=== PATIENT | male | born 1955 | race Caucasian/White ===

== ENCOUNTER → 2016-12-10 | Outpatient (CLI) | payer OTHER ==
[~2016-12-10] MED LIST: DXY100 PO; IBUP200T52 PO; LDDP5 TD; LORA-741 PO; MULT-506 PO; OXYC5TAB PO; SIMV20TA2 PO
[2016-12-10 09:35] LABS: COMPLETE YES; EOS % 3.5 %; HEMATOCRIT 46.8 % (42-52); IG% 0.1 %; LYMPH % 21.7 %; LYMPH ABS # 1.51 K/uL (1.2-3.4); MEAN CELL VOLUME 87.8 fL (80-100); MEAN CORPUSCULAR HEMOGLOBIN 30.8 pg (25-34); MEAN PLATELET VOLUME 10.5 fL (7.4-10.4); MONO % 6.2 %; NEUT % 68.5 %; PLATELET COUNT 254 K/uL (130-400); RED BLOOD COUNT 5.33 M/uL (4.7-6.1); URINE APPEARANCE CLEAR (CLEAR); URINE BILIRUBIN NEG (NEG); URINE COLOR YELLOW; URINE EPITHELIAL CELL AUTO 0-5 /lpf (0-5); URINE NITRITE NEG (NEG); URINE PH 5.5 (4.5-7.5); URINE SPECIFIC GRAVITY 1.021 (1.000-1.030); UROBILINOGEN NEG (NEG); WHITE BLOOD COUNT 6.95 K/uL (4.8-10.8)
[2016-12-10 09:37] LABS: MANUAL MICROSCOPIC REQUIRED? NO; REVIEW REQ? NO
[2016-12-10 09:47] LABS: ALT/SGPT 44 U/L (12-78); AST/SGOT 21 U/L (15-37); BLOOD UREA NITROGEN 16 mg/dl (7-18); BUN/CREATININE RATIO 16.3 (10-20); CARBON DIOXIDE 27 mmol/L (21-32); CHLORIDE 108 mmol/L (98-107); CHOLESTEROL 165 mg/dl (0-200); CREATININE 0.96 mg/dl (0.60-1.40); GLUCOSE 97 mg/dl (70-99); POTASSIUM 3.9 mmol/L (3.5-5.1); SODIUM 144 mmol/L (136-145)
[2016-12-10 09:54] LABS: CALCIUM 9.2 mg/dl (8.5-10.1)
[2016-12-10 09:59] LABS: CHOLESTEROL/HDL RATIO 3.1; HDL CHOLESTEROL 54 mg/dl; LDL CHOLESTEROL CALCULATED 86 mg/dl; TRIGLYCERIDES 126 mg/dl (0-150); VERY LOW DENSITY LIPOPROT CALC 25 mg/dl
== END | disposition home or self-care (01) ==
LOC: C.LAB1850 07:02
PROVIDERS: ATTEND Internal Medicine
DX: A69.20 Lyme disease, unspecified (principal)

== ENCOUNTER → 2017-07-23 | Outpatient (CLI) | payer OTHER ==
[2017-07-23 11:28] LABS: BASO % 0.1 %; BASO ABS # 0.01 K/uL (0-0.2); EOS % 2.2 %; EOS ABS # 0.18 K/uL (0-0.5); HEMATOCRIT 49.8 % (42-52); HEMOGLOBIN 17.7 g/dL (14.0-18.0); IG# 0.02 K/uL (0.00-0.02); LYMPH % 20.9 %; LYMPH ABS # 1.74 K/uL (1.2-3.4); MEAN CELL VOLUME 88.9 fL (80-100); MEAN CORPUSCULAR HEMOGLOBIN 31.6 pg (25-34); MEAN CORPUSCULAR HGB CONC 35.5 g/dl (32-36); MEAN PLATELET VOLUME 10.3 fL (7.4-10.4); MONO % 7.1 %; MONO ABS # 0.59 K/uL (0.11-0.59); NEUT % 69.5 %; NEUT ABS # 5.77 K/uL (1.4-6.5); PLATELET COUNT 230 K/uL (130-400); RED CELL DISTRIBUTION WIDTH CV 13.1 % (11.5-14.5); RED CELL DISTRIBUTION WIDTH SD 42.1 fL (36.4-46.3); WHITE BLOOD COUNT 8.31 K/uL (4.8-10.8)
[2017-07-23 11:39] LABS: HEMOGLOBIN A1C 5.4 % (4.5-5.6)
[2017-07-23 13:05] LABS: ALT/SGPT 61 U/L (12-78); AST/SGOT 25 U/L (15-37); BLOOD UREA NITROGEN 12 mg/dl (7-18); CALCIUM 9.5 mg/dl (8.5-10.1); CARBON DIOXIDE 27 mmol/L (21-32); CREATININE 1.03 mg/dl (0.60-1.40); GLUCOSE 97 mg/dl (70-99); POTASSIUM 4.1 mmol/L (3.5-5.1); SODIUM 140 mmol/L (136-145)
[2017-07-23 13:13] LABS: CHOLESTEROL 156 mg/dl (0-200); LDL CHOLESTEROL CALCULATED 70 mg/dl
== END | disposition home or self-care (01) ==
LOC: C.LAB1850 09:22
PROVIDERS: ATTEND Physician Assistant
DX: E78.00 Pure hypercholesterolemia, unspecified (principal); R73.9 Hyperglycemia, unspecified